=== PATIENT | male | born 1940 | race Caucasian/White ===

== ENCOUNTER → 2022-06-17 12:59 | Outpatient (ROUT) | payer OTHER, SELFPAY ==
[2022-06-17 14:06] LABS: COVID-19 CEPHEID PCR (VTM/NP) Negative (Negative)
== END ==
PROVIDERS: Visit Provider Otolaryngology
DX: K11.20 Sialoadenitis, unspecified (principal); K11.5 Sialolithiasis; J98.8 Other specified respiratory disorders; Z20.822 Contact with and (suspected) exposure to COVID-19
CPT/HCPCS: U0003; U0005

== ENCOUNTER 2022-06-19 06:31 | Day surgery (SDC) | payer OTHER, SELFPAY ==
[2022-06-18 11:42] VITALS: BMI 33.5
[2022-06-19] VITALS (8 sets, daily range): BP systolic 134–167; BP diastolic 59–103; PULSE 84–89; RESP 14–18; TEMP 35.9–36.5; O2SAT 91–100; BMI 32.1
--- NOTE | 2022-06-19 | PATH_ITS ---
[facility] Accession Number: [id number] No. of containers..01 Tissue . 01 Material submitted: . submandibular gland - RIGHT SUBMANDIBULAR GLAND . 01 Diagnosis: Right Submandibular Gland, Resection: Sialithiasis and chronic sialadenitis. Negative for neoplasia. MRV 06/23/2022 1343 Local . 01 Electronically signed: . Margot Reyez MD, Pathologist NPI- [id number] . 01 Gross description: . Received in formalin labeled with the patient's name and right submandibular gland and consists of a 14 gram, unoriented, parsons lobular fragment of soft tissue measuring 4.0 x 2.7 x 1.5 cm. The external surface is inked blue. Serial sectioning reveals a well-circumscribed nodule with a hard friable cut surface measuring 1.3 cm in greatest dimension and is 0.1 cm from the nearest margin. The remaining parenchyma is parsons lobulated and unremarkable. Chief Deputy sections to include the nodule to margins and uninvolved parenchyma are submitted in cassettes A1-A3 following decalcification. ([id number]) /[facility] 06/20/2022 1731 Local . 01 Pathologist provided ICD-10: K11.20 . 01 CPT . 755854 Specimen Comment: A courtesy copy of this report has been sent to [phone] Performed at: 01 [facility] [address] [place] [address] [address], [place], [place] [id number] MD Harvey Dickens MD Phone: [phone]
--- NOTE | 2022-06-19 07:17 | PM.PREOP ---
Pre-operative Note Interval Note History & Physical reviewed/Exam performed by Physician: Yes Changes to H&P: No
--- NOTE | 2022-06-19 07:19 | PM.HP.1 ---
History of Present Illness History of Present Illness Date Patient Seen: 06/19/22 Time Patient Seen: 07:19 Chief complaint: SDC Narrative: 81-year-old male with known large right submandibular stone last seen in clinic 04/24/2022 presents for right submandibular gland excision. No interval health changes, held his aspirin beginning 10 days ago. Patient History Medical History BPH (benign prostatic hyperplasia) Elevated PSA GERD (gastroesophageal reflux disease) Salivary stone Submandibular sialoadenitis Throat pain Surgical History Hx of eye surgery Family & Social History Social History: household members spouse Tobacco & Substance use: Smoking Status Never smoker alcohol intake current alcohol intake frequency a few times a week Substance Use Type does not use Meds Home Medications and Allergies Home Medications Medication Instructions Recorded Confirmed Type aspirin 81 mg tablet,delayed 81 mg PO DAILY 06/18/22 06/18/22 History release atorvastatin 10 mg tablet 10 mg PO DAILY 06/18/22 06/18/22 History famotidine 06/18/22 History fluticasone propionate 50 1 spray intranasal DAILY 06/18/22 06/18/22 History mcg/actuation nasal spray,suspension tamsulosin 0.4 mg capsule 0.4 mg PO DAILY 06/18/22 06/18/22 History Allergies Allergy/AdvReac Type Severity Reaction Status Date / Time No Known Drug Allergies Allergy Verified 06/18/22 12:01 Review of Systems Review of Systems Narrative: Negative except as listed in the HPI Exam Narrative Exam Narrative: Well-developed well-nourished male in no acute distress heart regular rate and rhythm without murmur lungs clear to auscultation bilaterally Assessment & Plan Assessment & Plan narrative: Assessment: right large submandibular stone 2. 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 Time Spent With Patient Critical Care time: I spent a total of [] minutes of critical care time on this patient's care today; this time is exclusive of procedural time.
--- NOTE | 2022-06-19 07:25 | P.OP_ITS ---
Operative Date/Time/Diagnoses Date of procedure: 06/19/22 Time of procedure: 09:23 Pre-op diagnosis: Right large intraglandular submandibular stone, right chronic sialoadenitis Post-op diagnosis: same Procedure & Clinicians Procedure: Right submandibular gland excision Same procedure as scheduled: Yes Indications: 81-year-old male with the above diagnosis incompletely managed with medical therapy presents for the above procedure. Following discussion of the material risks benefits complications and alternatives, he elected to proceed. Surgeon: Bethel Bhatti Slide Fastener Chain Assembler: Dereck Stone Anesthesia Type: General and Local Operative Notes Findings: Large submandibular gland with 2 cm palpable stone more medially, some inflammation at the level of the connection with the lingual nerve and ganglion, but otherwise normal dissection planes. Facial artery ligated, facial vein intact. Hypoglossal nerve not seen. Specimen(s): other (Right submandibular gland) Estimated Blood Loss (mL): 10 Procedure in detail: Following identification and confirmation of consent as well as the operative side, patient was brought to the operating room suite and placed in the supine position. General endotracheal anesthesia was administered the table was turned right side out with the head turned to the left and shoulder roll placed. A proposed incision was marked in ink 2 fingerbreadths inferior to the mandible approximately 8 cm in length and infiltrated with 1% lidocaine 1 100,000 epinephrine. Following sterile prep and drape, a 15 blade incised the skin, subcutaneous tissue, and platysma and sharp and blunt dissection proceeded down to the inferior border of the submandibular gland. Sharp and blunt dissection proceeded directly on the gland capsule anteriorly and posteriorly, with the facial artery ligated and tied with silk posteriorly. The facial vein was intact. The gland was freed circumferentially and the mylohyoid was identified anteriorly and retracted anteriorly. Further dissection proceeded down to the lingual nerve and ganglion which showed some scarring but the gland was sharply from the lingual nerve which was intact. The duct was also identified and ligated and the specimen was removed. Minimal hemostasis was required after irrigation. The platysma was closed with interrupted 4-0 chromic followed by additional interrupted suture for the subcutaneous tissue and deep dermis, followed by running 5 0 nylon to the skin. Antibiotic ointment and dressing placed. Sponge and needle counts were correct and he was extubated in the operating room taken recovery room in stable condition without known complication. Complications: none Post-operative Condition: stable Disposition: same day surgery Plan for aftercare: Ice for 24-48 hours, Polysporin or Vaseline to the incision at all times, elevate head of bed, follow-up as scheduled 6 days for suture removal.
[2022-06-19] MEDS: LACTATED RINGERS 1,000 ML 42 ML IV (07:51)
[2022-06-19] MEDS: LIDOCAINE 1% W/EPI 3 ML INJ (08:00)
--- NOTE | 2022-06-19 08:36 | SUR.OPER ---
Supine on padded OR bed, head on pillow, arms padded and tucked at sides, legs uncrossed, safety belt at thigh, tape over blanket over lower legs. Head on gel donut. Shoulder roll under right shoulder.
[2022-06-19] MEDS: BACITRACIN OINT 0.9 GM PCKT 1 APPLIC TOP (09:14)
--- NOTE | 2022-06-19 09:50 | SUR.PHASEI ---
06/19/2220-2936-flscpejph more. voice slightly hoarse. speech clear . maintains hob elevated above 45 degrees . ice to opsite. denies pain or nausea. tolerating sips of water. sats maintained 99-100% on room air.
[2022-06-19] MEDS: ACETAMINOPHEN 325 MG TABLET 650 MG PO (10:15)
--- NOTE | 2022-06-19 10:28 | SUR.PHASEII ---
Discharge instructions reviewed with pt and he verbalized understanding.
== END 2022-06-19 10:33 | disposition home or self-care (01) ==
PROVIDERS: Referring Provider Otolaryngology; Visit Provider Otolaryngology
PROC: (CPT 42440; principal; 2022-06-19 07:45)
DX: K11.5 Sialolithiasis (principal); K11.20 Sialoadenitis, unspecified
CPT/HCPCS: 42440; J1100; J2405; J2704; J3010